=== PATIENT | female | born 1950 | race Caucasian/White ===

== ENCOUNTER 2021-12-12 05:58 | Emergency (ER) | payer MEDICARE, MEDICAID ==
[~2021-12-12] VITALS: Ht 160 cm; Wt 100.0 kg
[2021-12-12 06:24] LABS: CLARITY,URINE CLEAR (Clear); GLUCOSE, URINE NEGATIVE (Neg); KETONES,URINE NEGATIVE (Neg); LEUKOCYTE ESTERASE ,URINE NEGATIVE (Neg); NITRITES, URINE NEGATIVE (Neg); OCCULT BLOOD,URINE NEGATIVE (Neg); PH,URINE 5.5 (4.8-8.0); PROTEIN,URINE NEGATIVE (Neg); UROBILINOGEN,URINE 0.2 E.U/dL (0.2-1.0)
[2021-12-12 06:26] LABS: COLOR,URINE STRAW (Yellow); UA COLLECTION TYPE CLN CATCH MIDSTREAM
--- NOTE | 2021-12-12 08:28 | NUR ---
TO CT AT THIS TIME VIA WHEELCHAIR.
[2021-12-12 09:04] LABS: BASOPHILS # (AUTO) 0.1 X10'3 (0-0.2); BASOPHILS % (AUTO) 1.2 % (0-1); EOSINOPHILS # (AUTO) 0.2 X10'3 (0-0.9); EOSINOPHILS % (AUTO) 2.8 % (0-6); HEMATOCRIT 40.4 % (35.0-45.0); HEMOGLOBIN 13.4 g/dl (12.0-16.0); LYMPHOCYTES # (AUTO) 2.2 X10'3 (1.1-4.8); LYMPHOCYTES % (AUTO) 26.1 % (21-51); MEAN CORPUSCULAR HEMOGLOBIN 29.5 PG (27.0-31.0); MEAN CORPUSCULAR HGB CONC 33.2 g/dL (33.0-36.5); MEAN CORPUSCULAR VOLUME 88.9 FL (78-98); MEAN PLATELET VOLUME 7.6 FL (7.4-10.4); MONOCYTES # (AUTO) 0.6 X10'3 (0-0.9); MONOCYTES % (AUTO) 7.4 % (2-12); NEUTROPHILS # (AUTO) 5.3 X10'3 (1.8-7.7); NEUTROPHILS % (AUTO) 62.5 % (42-75); PLATELET COUNT 312 X10'3 (140-440); RED BLOOD COUNT 4.54 X10'6 (4.20-5.60); RED CELL DISTRIBUTION WIDTH 15.3 % (11.5-14.5); WHITE BLOOD COUNT 8.5 X10'3 (4.5-11.0)
[2021-12-12 09:06] LABS: ALANINE AMINOTRANSFERASE 23 U/L (12-78); ALBUMIN 3.7 G/DL (3.4-5.0); ALBUMIN/GLOBULIN RATIO 0.9 (1.1-1.5); ALKALINE PHOSPHATASE 115 IU/L (46-116); ANION GAP 8 (8-16); ASPARTATE AMINO TRANSFERASE 15 U/L (10-37); BILIRUBIN,TOTAL 0.2 MG/DL (0.1-1.0); BLOOD UREA NITROGEN 22 MG/DL (7-18); BUN/CREATININE RATIO 21.4 (6.6-38.0); CALCIUM 9.5 MG/DL (8.5-10.1); CHLORIDE 104 MMOL/L (99-107); CREATININE 1.03 MG/DL (0.40-0.90); GLUCOSE 99 MG/DL (70-104); POTASSIUM 4.2 MMOL/L (3.5-5.1); SODIUM 138 MMOL/L (135-145); TOTAL CARBON DIOXIDE 26.5 MMOL/L (24-32); TOTAL PROTEIN 7.6 G/DL (6.4-8.2); eGFR 53 ML/MIN
[2021-12-12 09:28] VITALS: BP 126/75
== END 2021-12-12 09:29 | disposition home or self-care (01) ==
LOC: ER 06:00
DX: R10.9 Unspecified abdominal pain (principal); I10 Essential (primary) hypertension; Z87.891 Personal history of nicotine dependence
CPT/HCPCS: 36415; 74176; 80053; 81003; 85025; 85651; 99284

== ENCOUNTER 2024-01-04 23:00 | Emergency (ER) | payer BC, MEDICAID ==
[~2024-01-04] VITALS: Ht 160 cm; Wt 87.5 kg
[2024-01-05 00:04] LABS: BASOPHILS # (AUTO) 0.1 X10'3 (0-0.2); BASOPHILS % (AUTO) 0.8 % (0-1); EOSINOPHILS # (AUTO) 0.2 X10'3 (0-0.9); EOSINOPHILS % (AUTO) 2.3 % (0-6); HEMATOCRIT 38.3 % (35.0-45.0); HEMOGLOBIN 12.8 g/dl (12.0-16.0); LYMPHOCYTES # (AUTO) 1.8 X10'3 (1.1-4.8); LYMPHOCYTES % (AUTO) 22.6 % (21-51); MEAN CORPUSCULAR HEMOGLOBIN 29.6 PG (27.0-31.0); MEAN CORPUSCULAR HGB CONC 33.4 g/dL (33.0-36.5); MEAN CORPUSCULAR VOLUME 88.6 FL (78-98); MONOCYTES # (AUTO) 0.5 X10'3 (0-0.9); MONOCYTES % (AUTO) 6.6 % (2-12); NEUTROPHILS # (AUTO) 5.3 X10'3 (1.8-7.7); NEUTROPHILS % (AUTO) 67.7 % (42-75); PLATELET COUNT 264 X10'3 (140-440); RED BLOOD COUNT 4.32 X10'6 (4.20-5.60); WHITE BLOOD COUNT 7.9 X10'3 (4.5-11.0)
[2024-01-05 00:15] LABS: ALANINE AMINOTRANSFERASE 16 U/L (12-78); ALBUMIN 3.5 G/DL (3.4-5.0); ALKALINE PHOSPHATASE 105 IU/L (46-116); ANION GAP 10 (8-16); ASPARTATE AMINO TRANSFERASE 19 U/L (10-37); BILIRUBIN,TOTAL 0.4 MG/DL (0.1-1.0); BLOOD UREA NITROGEN 15 MG/DL (7-18); BUN/CREATININE RATIO 11.8 (10.0-20.0); CALCIUM 8.6 MG/DL (8.5-10.1); CHLORIDE 95 MMOL/L (99-107); CREATININE 1.27 MG/DL (0.40-0.90); GLUCOSE 105 MG/DL (70-104); LIPASE 49 U/L (16-77); POTASSIUM 3.9 MMOL/L (3.5-5.1); SODIUM 129 MMOL/L (135-145); TOTAL CARBON DIOXIDE 24.4 MMOL/L (24-32); TOTAL PROTEIN 6.9 G/DL (6.4-8.2); eCRCL 34 ML/MIN; eGFR 41 ML/MIN
[2024-01-05 00:33] LABS: BILIRUBIN,URINE NEGATIVE (Neg); CLARITY,URINE CLEAR (Clear); COLOR,URINE STRAW (Yellow); GLUCOSE, URINE NEGATIVE (Neg); KETONES,URINE NEGATIVE (Neg); LEUKOCYTE ESTERASE ,URINE NEGATIVE (Neg); NITRITES, URINE NEGATIVE (Neg); OCCULT BLOOD,URINE NEGATIVE (Neg); PH,URINE 5.5 (4.8-8.0); PROTEIN,URINE NEGATIVE (Neg); UROBILINOGEN,URINE 0.2 E.U/dL (0.2-1.0)
[2024-01-05 00:51] LABS: UA COLLECTION TYPE CLN CATCH MIDSTREAM
[2024-01-05 01:13] VITALS: BP 118/62; PULSE 74; RESP 16; TEMP 98.6; O2SAT 99
== END 2024-01-05 01:14 | disposition home or self-care (01) ==
LOC: ER 23:00
DX: K59.00 Constipation, unspecified (principal); I10 Essential (primary) hypertension
CPT/HCPCS: 36415; 74018; 80053; 81003; 83690; 84145; 85025; 99284

== ENCOUNTER 2024-10-03 07:41 | Emergency (ER) | payer BC, MEDICAID ==
[~2024-10-03] VITALS: Ht 167.6 cm; Wt 86.0 kg
[2024-10-03 08:34] LABS: LEUKOCYTE ESTERASE ,URINE MODERATE (Neg); NITRITES, URINE NEGATIVE (Neg); OCCULT BLOOD,URINE TRACE-INTACT (Neg)
[2024-10-03 08:37] LABS: UA COLLECTION TYPE CLN CATCH MIDSTREAM
[2024-10-03 08:40] LABS: MUCUS STRANDS NONE SEEN /LPF (Neg); SQUAMOUS EPITHELIAL CELL,UR NONE SEEN /LPF (FEW); WBC CLUMPS,URINE MODERATE /HPF (NEGATIVE)
--- NOTE | 2024-10-03 09:13 | Physician Documentation ---
History of Present Illness ~ Chief Complaint: Flank Pain Stated Complaint: KIDNEY PAIN Time Seen by MD: 09:01 Primary Medical Doctor: [facility] Source: patient (9) Mode of Arrival: POV HPI Patient comes in for evaluation of left flank pain. She has a history of UTIs previously, but reports no UTI symptoms today, no dysuria, no hematuria, no history of kidney stones. She began to have left back and CVA pain couple of days ago which was initially minor but has become persistent and she has been unable to sleep since last night. She took for a leave at 5:00 a.m. this morning without any improvement. She denies any associated fever or vomiting. Medication Reconciliation Allergies: Coded Allergies: Sulfa (Sulfonamide Antibiotics) (Verified Allergy, Mild, 10/03/24) Past Medical History Past Medical History: High Cholesterol, Hypertension, Diverticulitis, GI Bleed, UTI Past Surgical History: no surgical history Smoking Status: Never smoker Alcohol Use: None Lives In: Home Review of Systems All Other Systems at this time: Reviewed and Negative Physical Exam Vital Signs: Temperature: 98.7, Source: Oral, Heart Rate: 79, Respiratory Rate: 18, BP: 165/90, Pulse Oximetry: 97, Weight: 86.000 Oxygen Flow Rate: 0 Physical Exam General: Pt is awake, alert, oriented x4 in mild distress, with waves of pain that, upon her. She is more comfortable lying down than sitting up. Head: Normocephalic and atraumatic. Eyes: Conjunctiva normal. ENT: Mucous membranes moist. Neck: Supple. Chest: Clear to auscultation bilaterally, without rales, rhonchi, or wheezes. There is no accessory muscle use or retractions. Cardiac: Regular rate and rhythm without murmurs, gallops or rubs. Palpation of the chest wall is normal. Abd: Soft, nondistended, nontender, with normoactive bowel sounds. No guarding or rebound. Back: Patient has significant point tenderness at the left posterior axillary line, questionable CVA tenderness. Extremities: Within normal limits without cyanosis, clubbing, or edema. Skin: [place], warm and dry with no significant rash appreciated. Neuro: Cranial nerves II-XII grossly intact. The gait is normal. Progress Results/Orders Results/Orders Orders - HALIMA BECKMAN MD Straight Cath For Urine Sample (10/03/24 08:19) Cult Urine + [facility] [facility] (10/03/24 08:41) Ultrasound Kidney Non Vasc (10/03/24 09:08) Completed Orders - HALIMA BECKMAN MD Ua W/Microscopic, Cult If Ind (10/03/24 08:24) Ceftriaxone/Y0n-Hwyfuups 1gm (Rocephin 1 (10/03/24 09:10) Ultrasound Kidney Non Vasc (10/03/24 09:08) Medications Received in ER Medications (Trade) Dose Ordered Sig/Luis Route PRN Reason Start Time Stop Time Status Last Admin Dose Admin Ceftriaxone Sodium 50 ml @ 100 mls/hr ONCE ONCE IV 10/03/24 09:10 10/03/24 09:39 DC 10/03/24 09:42 100 MLS/HR Vital Signs 10/03/24 10/03/24 10/03/24 10/03/24 07:48 08:40 08:40 10:39 Temp 98.7 98.7 98.7 Pulse 90 79 78 Resp 18 18 18 15 B/P (MAP) 190/83 165/90 (115) 176/87 Pulse Ox 97 97 97 O2 Flow Rate 0 Laboratory Tests Test 10/03/24 08:24 Urine Specimen Description Cln catch midstream Urine Color Straw Urine Clarity Slightly cloudy Urine pH 6.0 Urine Specific Rumsey <=1.005 Urine Protein Negative Urine Glucose (UA) Negative Urine Ketones Negative Urine Occult Blood Trace-intact Urine Nitrite Negative Urine Bilirubin Negative Urine Urobilinogen 0.2 Urine Leukocyte Esterase Moderate H Urine RBC 0-2 Urine WBC Tntc H Urine WBC Clumps Moderate Urine Squamous Epithelial Cells None seen Urine Bacteria 1+ Urine Mucus None seen Urine Culture Indicated Indicated Volume Urine Centrifuged 10 ml Urine Comment Microbiology Date/Time Source Procedure Growth Status 10/03/24 08:41 Urine Clean Catch Midstream Urine Culture - Preliminary Culture received. Resulted Medical Decision Making Additional Comment Patient presenting with left-sided flank pain and UTI confirmed on urinalysis. She has exquisite tenderness over the musculature of the left back, making it difficult to assess whether she may have CVA tenderness as well, but has no signs nor symptoms of sepsis nor acute pyelonephritis. Patient has received pain medications, fluids, and antibiotics in the emergency department and will be sent home with antibiotics and pain medication. She has strict instructions to follow up with her PMD this week for recheck and culture check, and understands to return to the emergency department if she has any new or worsening symptoms or concerns. Departure Time of Disposition: 10:55 Disposition: 01 HOME / SELF CARE / HOMELESS Impression: Primary Impression: Acute urinary tract infection Condition: Stable Discharge Instructions: Urinary Tract Infection, Adult Additional Instructions: It is very important that you follow-up this week with your primary care doctor for recheck. Take the antibiotics as prescribed, until they are finished. Add itionally you may take Tylenol or ibuprofen for pain. Rest and stay well hydrated. Return immediately to the emergency department if you have increased pain, vomiting or fever, blood in the urine, or any other concerns. Referrals: NO PRIMARY CARE PROVIDER (PCP) Prescriptions Acetaminophen With Codeine (Tylenol W/Codeine #3 Tab) 300 Mg-30 Mg Tablet 1 EACH PO QID PRN PRN for pain, #14 TAB Prov: HALIMA BECKMAN MD 10/03/24 Cephalexin*Monohydrate* (Keflex*) 500 Mg Capsule 1 CAP PO Q6H for 10 Days, #40 CAP Prov: HALIMA BECKMAN MD 10/03/24 Education Educated: Patient Educated regarding: diagnosis, treatment Signature Scribe Signature: Attestation: HALIMA BECKMAN MD Oct 03, 2024 09:13
[2024-10-03] MEDS: CefTRIAXone/D5W-Rocephin 1gm 50 ML IV ONE (09:42)
--- NOTE | 2024-10-03 09:49 | RADIOLOGY REPORT ---
INDICATION: L flank pain r/o hydronephrosis TECHNIQUE: Multiple real-time sonographic images of the kidneys and bladder were obtained. COMPARISON: DI ABDOMEN,SINGLE VIEW(KUB) on DOS: 01/04/24, CT ABDOMEN PELVIS on DOS: 12/12/21 FINDINGS: The right kidney measures 10 cm in length, which is normal in size. There is normal echogen icity of the right kidney. No hydronephrosis. The left kidney measures 10 cm in length, which is normal in size. There is normal echogenicity of th e left kidney. No hydronephrosis. Following voiding, the bladder volume residual measures 15 cc. IMPRESSION: 1. Normal sonographic appearance of the kidneys. No hydronephrosis.
[2024-10-03 10:39] VITALS: BP 176/87; PULSE 78; RESP 15; TEMP 98.7; O2SAT 97
[2024-10-03] MEDS ORDERED: CEPH-585 PO (10:57)
[2024-10-03] MEDS ORDERED: ACET-3068 PO (10:57)
== END 2024-10-03 11:03 | disposition home or self-care (01) ==
LOC: ER 07:41
DX: N39.0 Urinary tract infection, site not specified (principal); I10 Essential (primary) hypertension; E78.00 Pure hypercholesterolemia, unspecified; Z88.2 Allergy status to sulfonamides
CPT/HCPCS: 76770; 81001; 87088; 96374; 99285; J0696; 87077; 87186